=== PATIENT | female | born 1935 | race Caucasian/White ===

== ENCOUNTER 2019-02-06 05:55 | Inpatient (IN) ==
[2019-02-06] MEDS ORDERED: Morphine Sulfate 2 MG/ML SYRINGE IVP ONE (06:25)
[2019-02-06] MEDS ORDERED: Ondansetron 4 MG/2 ML VIAL IVP ONE (06:26)
[2019-02-06 06:48] LABS: Basophils # 0.1 K/mcL (0.0-0.2); Basophils % 0.7 %; Eosinophils # 0.3 K/mcL (0.0-0.6); Eosinophils % 3.4 %; Hematocrit 39.3 % (35.3-44.9); Hemoglobin 13.2 g/dL (11.5-15.4); Immature Granulocytes % 0.6 % (0-4); Lymphocytes % 10.6 %; Mean Corpuscular HGB Conc 33.6 g/dL (31.6-35.5); Mean Corpuscular Hemoglobin 31.9 pg (28.0-33.3); Mean Corpuscular Volume 94.9 fL (83.0-100.0); Mean Platelet Volume 9.9 fL (9.4-12.4); Monocytes # 0.6 K/mcL (0.0-1.3); Monocytes % 6.5 %; Platelet Count 180 K/mcL (140-400); Red Blood Count 4.14 M/mcL (3.82-4.97); Red Cell Distribution Width 13.5 % (11.5-14.5); Segmented Neutrophils % 78.2 %; White Blood Count 8.9 K/mcL (4.3-11.1)
[2019-02-06 06:55] LABS: Prothrombin Time 11.7 Seconds (9.4-12.1)
[2019-02-06 06:58] LABS: Activated Partial Thrombo Time 27.5 Seconds (26.0-36.0)
[2019-02-06 07:13] LABS: Alanine Aminotransferase 11 Units/L (7-52); Albumin 3.9 g/dL (3.5-5.7); Albumin/Globulin Ratio 1.9 (1.1-2.2); Alkaline Phosphatase 63 Units/L (34-104); Aspartate Amino Transferase 12 Units/L (13-39); BUN/Creatinine Ratio 15 (6-26); Bilirubin,Total 0.6 mg/dL (0.3-1.0); Blood Urea Nitrogen 18 mg/dL (8-23); Calcium 9.3 mg/dL (8.6-10.3); Carbon Dioxide 27 mEq/L (23-29); Chloride 104 mEq/L (98-107); Globulin 2.1 g/dL (2.4-3.5); Glucose 104 mg/dL (70-105); Osmolality,Calculated 294 (280-300); Sodium 141 mEq/L (136-145); Troponin I < 0.03 ng/mL (< 0.04); eGFR For African Americans 50 (> 60); eGFR For Non-African Americans 41 (> 60)
[2019-02-06 07:56] LABS: Bilirubin,Urine Negative (Negative); Blood,Urine Negative (Negative); Clarity,Urine Clear (Clear); Color,Urine Yellow (Yellow); Glucose,Urine (UA) Normal (Normal); Ketones,Urine Trace mg/dL (Negative); Leukocyte Esterase,Urine Negative (Negative); Nitrite,Urine Negative (Negative); PH,Urine 7.5 pH Units (5.0-8.0); Protein,Urine Negative (Neg-Trace); Specific Gravity,Urine 1.012 (1.010-1.025); Urobilinogen,Urine Normal (Normal)
[2019-02-06] MEDS ORDERED: Acetaminophen 325 MG TABLET PO PRN (10:02)
[2019-02-06] MEDS ORDERED: Naloxone 0.4 MG/ML INJ IVP PRN (10:06)
[2019-02-06] MEDS ORDERED: Ondansetron 4 MG/2 ML VIAL IVP PRN (10:06)
[2019-02-06] MEDS ORDERED: MOM Conc 10 ML UD.LIQ PO PRN (11:00)
[2019-02-06] MEDS ORDERED: Sennosides 8.6 MG TABLET PO PRN (11:03)
[2019-02-06] MEDS: Diltiazem CD (24hr) 180 MG CAPSULE PO SCH (19:43)
[2019-02-07 04:20] LABS: Hematocrit 37.3 % (35.3-44.9); Hemoglobin 12.4 g/dL (11.5-15.4)
[2019-02-07] MEDS ORDERED: Diltiazem CD (24hr) 180 MG CAPSULE PO SCH (09:00)
[2019-02-07] MEDS ORDERED: Aspirin 81 MG TAB.CHEW PO SCH (09:00)
[2019-02-07] MEDS: Diltiazem CD (24hr) 180 MG CAPSULE PO SCH (10:55)
[2019-02-07] MEDS ORDERED: Lidocaine -MPF 2% 2 ML VIAL ONE (15:00)
[2019-02-07] MEDS ORDERED: Ondansetron 4 MG/2 ML VIAL ONE ×2 (15:00→17:00)
[2019-02-07] MEDS ORDERED: *HR* Propofol 200 MG/20 ML VIAL IVP ONE (15:00)
[2019-02-07] MEDS ORDERED: *HR* FentaNYL (PF) 100 MCG/2 ML VIAL ONE (15:00)
[2019-02-07] MEDS ORDERED: *HR* Rocuronium Bromide 50 MG/5 ML VIAL ONE (15:00)
[2019-02-07] MEDS ORDERED: Lidocaine -MPF 4% 5 ML AMPUL ONE (15:00)
[2019-02-07] MEDS ORDERED: *HR* HYDROmorphone (PF) 1 MG/ML SYRINGE IVP PRN ×2 (15:44→18:20)
[2019-02-07] MEDS ORDERED: Acetaminophen IV 1,000 MG/100 ML INFUS..BTL ONE (15:46)
[2019-02-07] MEDS ORDERED: *HR* Succinylcholine 200 MG/10 ML VIAL IVP ONE (16:17)
[2019-02-07] MEDS ORDERED: *HR* PHENYLEPHRINE 1,000 MCG/10 ML SYRINGE IVP ONE (16:36)
[2019-02-07] MEDS ORDERED: Dexamethasone 4 MG/ML VIAL ONE (17:00)
[2019-02-07] MEDS ORDERED: Ondansetron 4 MG/2 ML VIAL IVP PRN (18:20)
[2019-02-07] MEDS ORDERED: Acetaminophen 325 MG TABLET PO PRN (18:20)
[2019-02-07] MEDS ORDERED: Naloxone 0.4 MG/ML INJ IVP PRN (18:20)
[2019-02-07] MEDS ORDERED: Sennosides 8.6 MG TABLET PO PRN (18:20)
[2019-02-08 04:33] LABS: Basophils % 0.3 %; Eosinophils % 0.1 %; Hematocrit 33.2 % (35.3-44.9); Immature Granulocytes % 0.1 % (0-4); Lymphocytes # 0.3 K/mcL (0.6-4.6); Lymphocytes % 3.4 %; Mean Corpuscular HGB Conc 31.9 g/dL (31.6-35.5); Mean Corpuscular Hemoglobin 31.8 pg (28.0-33.3); Mean Corpuscular Volume 99.7 fL (83.0-100.0); Mean Platelet Volume 10.7 fL (9.4-12.4); Monocytes # 0.4 K/mcL (0.0-1.3); Monocytes % 5.4 %; Neutrophils # 6.7 K/mcL (1.6-8.9); Platelet Count 138 K/mcL (140-400); Red Blood Count 3.33 M/mcL (3.82-4.97); Red Cell Distribution Width 13.2 % (11.5-14.5); Segmented Neutrophils % 90.7 %; White Blood Count 7.4 K/mcL (4.3-11.1)
[2019-02-08 04:35] LABS: Hemoglobin 10.6 g/dL (11.5-15.4)
[2019-02-08 04:42] LABS: Calcium 8.6 mg/dL (8.6-10.3); Potassium 4.7 mEq/L (3.5-5.1)
[2019-02-08] MEDS: 0.9 % Sodium Chloride 1,000 ML IVC SCH ×2 (06:15→20:07)
[2019-02-08] MEDS: Aspirin 81 MG TAB.CHEW PO SCH (08:16)
[2019-02-08] MEDS: Diltiazem CD (24hr) 180 MG CAPSULE PO SCH (08:16)
[2019-02-08] MEDS: *HR* Heparin 5,000 UNIT/ML VIAL SQ SCH ×2 (18:28→22:29)
[2019-02-09] MEDS: *HR* Heparin 5,000 UNIT/ML VIAL SQ SCH (06:19)
[2019-02-09 06:24] LABS: Basophils % 0.3 %; Eosinophils # 0.4 K/mcL (0.0-0.6); Eosinophils % 7.6 %; Hematocrit 27.4 % (35.3-44.9); Hemoglobin 9.2 g/dL (11.5-15.4); Immature Granulocytes % 0.3 % (0-4); Lymphocytes # 0.7 K/mcL (0.6-4.6); Lymphocytes % 11.2 %; Mean Corpuscular HGB Conc 33.6 g/dL (31.6-35.5); Mean Corpuscular Hemoglobin 31.9 pg (28.0-33.3); Mean Corpuscular Volume 95.1 fL (83.0-100.0); Mean Platelet Volume 10.6 fL (9.4-12.4); Monocytes # 0.5 K/mcL (0.0-1.3); Monocytes % 7.7 %; Neutrophils # 4.2 K/mcL (1.6-8.9); Platelet Count 136 K/mcL (140-400); Red Blood Count 2.88 M/mcL (3.82-4.97); Red Cell Distribution Width 13.5 % (11.5-14.5); Segmented Neutrophils % 72.9 %; White Blood Count 5.8 K/mcL (4.3-11.1)
[2019-02-09 06:43] LABS: Calcium 8.3 mg/dL (8.6-10.3); Potassium 4.1 mEq/L (3.5-5.1)
[2019-02-09] MEDS: Diltiazem CD (24hr) 180 MG CAPSULE PO SCH (09:24)
[2019-02-09] MEDS: Aspirin 81 MG TAB.CHEW PO SCH (09:24)
[2019-02-09] MEDS: 0.9 % Sodium Chloride 1,000 ML IVC SCH ×2 (09:24→22:24)
[2019-02-10 01:55] LABS: Basophils % 0.5 %; Eosinophils # 0.5 K/mcL (0.0-0.6); Eosinophils % 9.2 %; Hematocrit 25.7 % (35.3-44.9); Hemoglobin 8.3 g/dL (11.5-15.4); Immature Granulocytes % 0.2 % (0-4); Lymphocytes # 0.7 K/mcL (0.6-4.6); Lymphocytes % 11.7 %; Mean Corpuscular HGB Conc 32.3 g/dL (31.6-35.5); Mean Corpuscular Hemoglobin 32.5 pg (28.0-33.3); Mean Corpuscular Volume 100.8 fL (83.0-100.0); Mean Platelet Volume 10.6 fL (9.4-12.4); Monocytes # 0.5 K/mcL (0.0-1.3); Monocytes % 8.5 %; Platelet Count 129 K/mcL (140-400); Red Blood Count 2.55 M/mcL (3.82-4.97); Red Cell Distribution Width 13.5 % (11.5-14.5); Segmented Neutrophils % 69.9 %; White Blood Count 5.7 K/mcL (4.3-11.1)
[2019-02-10 02:09] LABS: Calcium 7.9 mg/dL (8.6-10.3); Potassium 4.2 mEq/L (3.5-5.1)
[2019-02-10] MEDS: Diltiazem CD (24hr) 120 MG CAPSULE PO SCH (08:12)
[2019-02-10] MEDS: Aspirin 81 MG TAB.CHEW PO SCH (08:12)
[2019-02-10] MEDS: *HR* Enoxaparin 30 MG/0.3 ML SYRINGE SQ SCH (15:13)
[2019-02-11 05:31] LABS: Hematocrit 25.5 % (35.3-44.9); Hemoglobin 8.6 g/dL (11.5-15.4)
[2019-02-11] MEDS: *HR* Enoxaparin 30 MG/0.3 ML SYRINGE SQ SCH (06:03)
[2019-02-11] MEDS: Aspirin 81 MG TAB.CHEW PO SCH (10:11)
[2019-02-11] MEDS: Diltiazem CD (24hr) 120 MG CAPSULE PO SCH (10:11)
[2019-02-11 11:44] VITALS: BP 127/79
== END 2019-02-11 14:51 | DRG 481 ==
LOC: EMEROOARM 05:55 → 3NENU 07:56 → SUATTDRO 07:56 → 3NENU 09:04
PROVIDERS: ADMIT Student in an Organized Health Care Education/Training Program; ATTEND Internal Medicine